=== PATIENT | female | born 1960 | race Caucasian/White ===

== ENCOUNTER → 2019-08-20 | Day surgery (SDC) | payer OTHER ==
[2019-08-19 14:13] LABS: Urine WBC None Seen /hpf (0 - 5)
[2019-08-19 14:29] LABS: Hematocrit 42.3 % (36.0-46.0); Hemoglobin 13.6 g/dL (12.2-16.2); Mean Corpuscular Hemoglobin 29.1 pg (28.0-32.0); Mean Corpuscular Hgb Conc. 32.1 g/dL (32.0-36.0); Mean Corpuscular Volume 90.6 fL (80.0-100.0); Platelet Count (auto) 330 10^3/uL (140-450); Red Blood Cells 4.67 10^6/uL (4.0-5.20); Red Cell Distribution Width 17.4 % (11.8-14.3); White Blood Cell 10.6 10^3/uL (4.4-10.8)
[2019-08-19 14:32] LABS: Band Neutrophils % (manual) 0; Basophils % (manual) 0 (0.0-2.0); Blast Cells 0; Eosinophils % (manual) 0 (0-7); Metamyelocytes % 0; Myelocytes % 0; Promyelocytes % 0; Reactive Lymphocytes 0
[2019-08-19 14:40] LABS: Urine Bacteria NONE SEEN /hpf (None Seen); Urine Blood TRACE /uL (Negative); Urine Mucus FEW (None Seen); Urine Specific Gravity 1.022 (1.001-1.035)
[2019-08-19 14:48] LABS: INR 1.03 (0.9-1.15); Partial Thromboplastin Time 20.5 sec (23.64-32.05)
[2019-08-19 14:54] LABS: Lymphocytes % (manual) 5 (10.0-50.0); Monocytes % (manual) 7 (0-12)
[2019-08-19 15:03] LABS: Albumin 3.4 g/dL (3.4-5.0); Anion Gap 8 (5-15); Blood Urea Nitrogen 30 mg/dL (7-18); Calcium 8.9 mg/dL (8.5-10.1); Carbon Dioxide 27 mmol/L (21-32); Chloride 108 mmol/L (98-107); Glucose 92 mg/dL (74-106); Sodium 143 mmol/L (136-145)
[2019-08-19 15:06] LABS: Alanine Aminotransferase 26 U/L (13-56); Alkaline Phosphatase 53 U/L (45-117); Aspartate Aminotransferase 17 U/L (15-37); BUN/Creatinine Ratio 26.1; Bilirubin, Total 0.4 mg/dL (0.2-1.0); GFR African American 62 mL/min; GFR Non-African American 51 mL/min; Total Protein 6.3 g/dL (6.4-8.2)
[~2019-08-20] VITALS: Ht 172.7 cm; Wt 60.8 kg
[~2019-08-20] MED LIST: ACCU-CHEK COMFORT CURVE STRIP VI ONE; ALBU0.5N2 IN; ALBUAER3 IN; ALLO100T PO; ASPI-51 PO; ASPITAB34 PO; BACL20TA PO; BUPIVACAINE/DEXTROSE MPF 0.75% 2 ML AMP IT ONE; BUPR150T6 PO; CALC600T10 PO; CLINDAMYCIN 600MG IV 50 ML IV ONE; DIGO0.1220 PO; DIPH2.5T73 PO; EPINEPHrine HCL 1 MG/1 ML AMP ONE; ESTR0.05 TD; FENO145T27 PO; FLUT1SPR5; FOLI1TAB6 PO; GABA-339 PO; HYDR-4833 PO; HYDROmorphone HCL 2 MG/ML VL IV PRN; IBUP600T27 PO; LEVO200T7 PO; LIDOCAINE 1% HCL (LOCAL ANESTH.) INJ 20ML MDV ONE; LOSA-69 PO; METH2.5T3 PO; METO-6 PO; MIDAZOLAM HCL 1MG/1ML-2 ML VIAL ONE; MORPHINE SULF(PF) 0.5MG/ML 10ML VIAL ONE; MORPHINE SULFATE 4 MG/ML SYR/VIAL IV PRN; MULT-242 PO; OMEGCAP2 PO; OMEP20TA PO; ONDANSETRON HCL 4 MG/2 ML VIAL IV PRN; ONDANSETRON HCL 4 MG/2 ML VIAL ONE; POTA-220 PO; PROPOFOL 10 MG/ML 20 ML IV ONE; ROCURONIUM 10MG/ML 10ML VIAL IV ONE; SODIUM CHLORIDE LOCK 10 ML ONE; SPIR100T4 PO; SUCCINYLCHOLINE 20mg/ml 100mg/5ml SYRINGE IV ONE; TETRACAINE 1% INJ 2 ML VIAL IJ ONE; TIOT17SP IN; TOPI50TA32 PO; fentaNYL CITRATE 100 MCG/2 ML VL IV PRN; fentaNYL CITRATE 100 MCG/2 ML VL ONE
[2019-08-20 10:55] VITALS: BP 145/66
== END | disposition home or self-care (01) ==
LOC: SUR 06:04
PROVIDERS: ATTEND Orthopaedic Surgery
DX: S82.841A Displaced bimalleolar fracture of right lower leg, initial encounter for closed fracture (principal); S93.491A Sprain of other ligament of right ankle, initial encounter; S93.431A Sprain of tibiofibular ligament of right ankle, initial encounter; K21.9 Gastro-esophageal reflux disease without esophagitis; J44.9 Chronic obstructive pulmonary disease, unspecified; E11.22 Type 2 diabetes mellitus with diabetic chronic kidney disease; I12.9 Hypertensive chronic kidney disease with stage 1 through stage 4 chronic kidney disease, or unspecified chronic kidney disease; N18.3 Chronic kidney disease, stage 3 (moderate); I48.91 Unspecified atrial fibrillation; E78.5 Hyperlipidemia, unspecified; E03.9 Hypothyroidism, unspecified; E11.42 Type 2 diabetes mellitus with diabetic polyneuropathy; E11.21 Type 2 diabetes mellitus with diabetic nephropathy; Z88.0 Allergy status to penicillin; Z88.1 Allergy status to other antibiotic agents; Z88.8 Allergy status to other drugs, medicaments and biological substances; Z79.899 Other long term (current) drug therapy; W18.39XA Other fall on same level, initial encounter; Y93.89 Activity, other specified; Y92.89 Other specified places as the place of occurrence of the external cause; Y99.8 Other external cause status
CPT/HCPCS: 27696; 27814; 36415; 73600; 80053; 81001; 82962; 85007; 85027; 85610; 85730; C1713; J0171; J0330; J2001; J2250; J2270; J2405; J2704; J3010; J3490; 76000